=== PATIENT | female | born 1995 | race Caucasian/White ===

== ENCOUNTER 2019-11-04 11:40 | Emergency (ER) | payer MEDICAID, SELFPAY ==
[~2019-11-04] VITALS: Ht 157.5 cm; Wt 85.6 kg
[2019-11-04 12:13] VITALS: BP 97/66
[2019-11-04] MEDS ORDERED: ACETAMINOPHEN 500 MG TABLET ONE (12:52)
[2019-11-04] MEDS ORDERED: ACETAMINOPHEN 500 MG TABLET PO ONE (13:00)
== END 2019-11-04 13:28 | disposition home or self-care (01) ==
LOC: ED 13:00
DX: O99.513 Diseases of the respiratory system complicating pregnancy, third trimester (principal); Z3A.33 33 weeks gestation of pregnancy
CPT/HCPCS: 99282